=== PATIENT | male | born 1960 | race Caucasian/White ===

== ENCOUNTER 2018-03-31 08:50 | Emergency (ER) | payer OTHER ==
[2018-03-31 09:14] VITALS: BP 161/108
--- NOTE | 2018-03-31 09:14 | ED ---
Abdominal Pain/Male - HPI Summary HPI Summary: Pt is a 57 year old M presenting to the ED with a lump in his left lower abdomen. He says lump comes and goes but has been bad the last couple days. It is very painful has not gone away, and goes into the testicle. He says the pain has been so bad he wakes up throwing up. 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 - History of Current Complaint Chief Complaint: EDAbdPain Stated Complaint: ABD PAIN Time Seen by Provider: 03/31/18 08:57 Hx Obtained From: Patient Onset/Duration: Gradual Onset, Lasting Days, Still Present Timing: Constant, Lasting Days Severity Initially: Severe Severity Currently: Severe Pain Intensity: 10 Pain Scale Used: 0-10 Numeric Location: Suprapubic - left Radiates: No Radiates to: Inguinal Aggravating Factor(s): Movement, Deep Breaths, Other: - coughing, excess movement/stress Alleviating Factor(s): Nothing Associated Signs And Symptoms: Positive: Vomiting - Allergies/Home Medications Allergies/Adverse Reactions: Allergies Allergy/AdvReac Type Severity Reaction Status Date / Time bee venom protein (honey bee) Allergy Anaphylatic Verified 03/31/18 09:10 Shock procaine Allergy Anaphylatic Verified 03/31/18 09:10 Shock Home Medications: Home Medications NK [No Home Medications Reported] 03/31/18 [History Confirmed 03/31/18] PMH/Surg Hx/FS Hx/Imm Hx Previously Healthy: Yes Infectious Disease History: No Infectious Disease History: Denies: Traveled Outside the [place] in Last 30 Days - Family History Known Family History: Positive: Hypertension - Social History Alcohol Use: Daily Alcohol Amount: "couple" beers Substance Use Type: Reports: Marijuana Smoking Status (MU): Heavy Every Day Tobacco Smoker Review of Systems Negative: Fever Positive: Abdominal Pain, Vomiting All Other Systems Reviewed And Are Negative: Yes Physical Exam - Summary Physical Exam Summary: VITAL SIGNS: Reviewed. GENERAL: Patient is a well-developed and nourished male who is lying comfortable in the stretcher. Patient is not in any acute respiratory distress. HEAD AND FACE: No signs of trauma. No ecchymosis, hematomas or skull depressions. No sinus tenderness. EYES: PERRLA, EOMI x 2, No injected conjunctiva, no nystagmus. EARS: Hearing grossly intact. Ear canals and tympanic membranes are within normal limits. MOUTH: Oropharynx within normal limits. NECK: Supple, trachea is midline, no adenopathy, no JVD, no carotid bruit, no c- spine tenderness, neck with full ROM. CHEST: Symmetric, no tenderness at palpation LUNGS: Clear to auscultation bilaterally. No wheezing or crackles. CVS: Regular rate and rhythm, S1 and S2 present, no murmurs or gallops appreciated. ABDOMEN: L inguinal hernia protrusion, easily reduced. Bowel sounds are normal. EXTREMITIES: FROM in all major joints, no edema, no cyanosis or clubbing. NEURO: Alert and oriented x 3. No acute neurological deficits. Speech is normal and follows commands. SKIN: Dry and warm Triage Information Reviewed: Yes Vital Signs On Initial Exam: Initial Vitals Temp Pulse Resp BP Pulse Ox 98.1 F 84 14 163/97 96 03/31/18 08:53 12 08:53 12 08:53 12 08:53 12 08:53 Vital Signs Reviewed: Yes Diagnostics - Vital Signs Vital Signs Temp Pulse Resp BP Pulse Ox 03/31/18 08:53 98.1 F 84 14 163/97 96 - Laboratory Lab Statement: Any lab studies that have been ordered have been reviewed, and results considered in the medical decision making process. Abdominal Pain Fem Course/Dx - Course Assessment/Plan: This patient is a 57-year-old male who presents to the emergency department with a chief complaint of left inguinal pain. The patient reports and that he has is bulging mass in the left inguinal area for the last couple days. The pain has increased to approximately 5-6 out of 10. Past medical history: None. Past surgical history: Wrist surgery. Social history: Positive for smoking, positive alcohol intake, occasional marijuana. Family history: Hypertension with his brother. In the ED course the patient has a left inguinal hernia which it was easily reducible. After the reduction the pain has resolved. Now the patient is feeling better. Patient has no other complaints. The patient will be discharged home with follow-up with primary care physician and surgery. I discussed all the findings and test results with the patient. Patient was instructed to return to the emergency room immediately if any of the symptoms return or worsens. Plan of care was discussed with the patient and understands and agrees. All questions were answered at patient satisfaction. There were no further complaints or concerns. Lung exam before discharge: CTA B/L. Good air exchange. No wheezing or crackles heard. CVS: S1 and S2 present. No murmurs appreciated. Patient is alert and oriented x 3. Patient is hemodynamically stable. Patient will be discharged home with follow up PCP in the next 2-3 days - Diagnoses Provider Diagnoses: Inguinal hernia Discharge - Sign-Out/Discharge Documenting (check all that apply): Patient Departure - Discharge Plan Condition: Stable Disposition: HOME Patient Education Materials: Inguinal Hernia (ED) Forms: *Work Release Referrals: [facility] [Outside] [facility] [Medical Doctor] - - Billing Disposition and Condition Condition: STABLE Disposition: Home - Attestation Statements Document Initiated by Michaelibketty: Yes Documenting Scribe: Sarah Nguyen Provider For Whom Rustam is Documenting (Include Credential): Tae Burt MD. Scribe Attestation: Sarah Whatley scribed for Tae Burt MD. on 04/01/18 at 0734. Scribe Documentation Reviewed: Yes Provider Attestation: The documentation as recorded by the michaelibeSarah accurately reflects the service I personally performed and the decisions made by Tae donohue MD. Status of Scribe Document: Viewed
== END 2018-03-31 09:20 | disposition home or self-care (01) ==
LOC: ED 08:50
DX: K40.90 Unilateral inguinal hernia, without obstruction or gangrene, not specified as recurrent (principal); R10.32 Left lower quadrant pain; R11.0 Nausea; R05 Cough; F17.210 Nicotine dependence, cigarettes, uncomplicated
CPT/HCPCS: 99282

== ENCOUNTER → 2018-04-02 11:48 | Emergency (ER) | payer OTHER ==
[~2018-04-02 11:48] MED LIST: Acetaminophen TAB* 325 MG PO ONE
--- NOTE | 2018-04-02 16:56 | ED ---
GI/ HPI - HPI Summary HPI Summary: Patient is a 57 y/o M w/ c/o left inguinal hernia. He was present at ED two days ago for Sx. Hernia was reduced in ED, patient was discharged and instructed to follow up with surgery. He states that he was scheduled for appointment today in the afternoon. Upon waking up this morning, he states that he began to experience severe pain and bulging at the same area again. Pain is described as sharp. Patient called the surgeon's office, he was instructed to come to ED. He denies Hx of cardiac disease, respiratory disease. Patient states he is not on blood thinners. On triage, pain is rated 7/10, straining, bending over, and coughing is noted to aggravate Sx, nothing is noted to alleviate Sx. Home medications and allergies are reviewed. - History of Current Complaint Chief Complaint: EDGeneral Time Seen by Provider: 04/02/18 16:43 Stated Complaint: POSS HERNIA Hx Obtained From: Patient Onset/Duration: Started Hours Ago - Sx onset this morning, Still Present Timing: Constant, Lasting Hours Severity: Severe - 7/10 Current Severity: Severe - 7/10 Pain Intensity: 7 Location of Pain: Groin - left inguinal region Pain Characteristics: Sharp Associated Signs and Symptoms: Positive: Other: - left inguinal pain Aggravating Factor(s): Straining, Movement - bending over, Coughing, Movement - bending over Alleviating Factor(s): Nothing - Allergy/Home Medications Allergies/Adverse Reactions: Allergies Allergy/AdvReac Type Severity Reaction Status Date / Time bee venom protein (honey bee) Allergy Anaphylatic Verified 03/31/18 09:10 Shock procaine Allergy Anaphylatic Verified 03/31/18 09:10 Shock PMH/Surg Hx/FS Hx/Imm Hx Sensory History: Denies: Hx Legally Blind, Hx Deafness Opthamlomology History: Denies: Hx Legally Blind EENT History: Denies: Hx Deafness Infectious Disease History: No Infectious Disease History: Denies: Traveled Outside the [place] in Last 30 Days - Family History Known Family History: Positive: Hypertension - Social History Alcohol Use: Daily Alcohol Amount: "couple" beers Substance Use Type: Reports: Marijuana Smoking Status (MU): Heavy Every Day Tobacco Smoker Review of Systems Negative: Fever - on vitals, temp is 98.4 F Positive: Other - left inguinal pain All Other Systems Reviewed And Are Negative: Yes Physical Exam - Summary Physical Exam Summary: Appearance: Well-appearing, Well-nourished, lying in bed comfortably Skin: Warm, dry, no obvious rash Eyes: sclera anicteric, no conjunctival pallor ENT: mucous membranes moist, pharynx appears normal Neck: Supple, nontender Respiratory: Clear to auscultation, no signs of respiratory distress Cardiovascular: Normal S1, S2. No murmurs. Normal distal pulses in tibial and radial bilaterally. Abdomen: Soft, nontender, normal active bowel sounds present Musculoskeletal: Strength/ROM Intact; left inguinal hernia the size of a golfball that is tender and firm. Neurological: A&Ox3, awake and alert, mentation is normal, speech is fluent and appropriate Psychiatric: affect is normal, does not appear anxious or depressed Triage Information Reviewed: Yes Vital Signs On Initial Exam: Initial Vitals Temp Pulse Resp BP Pulse Ox 98.4 F 98 16 141/95 100 04/02/18 11:52 04/02/18 11:52 04/02/18 11:52 04/02/18 11:52 04/02/18 11:52 Vital Signs Reviewed: Yes Diagnostics - Vital Signs Vital Signs Temp Pulse Resp BP Pulse Ox 04/02/18 14:15 98.2 F 80 16 158/88 99 04/02/18 11:52 98.4 F 98 16 141/95 100 - Laboratory Lab Statement: Any lab studies that have been ordered have been reviewed, and results considered in the medical decision making process. Re-Evaluation - Re-Evaluation First Eval Re-Evaluation Time: 16:55 Comment: Discussed consult with Dr. Madera, patient is agreeable with discharge and follow up with Dr. Lara. GIGU Course/Dx - Course Course Of Treatment: Patient is a 57 y/o M w/ c/o left inguinal hernia. He was present at ED two days ago for Sx. Hernia was reduced in ED, patient was discharged and instructed to follow up with surgery. He states that he was scheduled for appointment today in the afternoon. Upon waking up this morning, he states that he began to experience severe pain and bulging at the same area again. Pain is described as sharp. Patient called the surgeon's office, he was instructed to come to ED. He denies Hx of cardiac disease, respiratory disease. Patient states he is not on blood thinners. On physical exam, left inguinal hernia the size of a golfball that is tender and firm is noted. This was reduced with a few minutes of gentle pressure. During ED course, patient was given Tylenol [address] Madera was consulted, who called Dr. Lara's office for possible appointment of patient. 1656 - Dr. Madera called back and gave earliest time and date patient can be seen by Dr. Lara. Patient is agreeable with discharge and follow up with Dr. Lara. - Diagnoses Provider Diagnoses: Left inguinal hernia - Physician Notifications Discussed Care Of Patient With: Stephane Madera Time Discussed With Above Provider: 16:50 Instructed by Provider To: Other - 1649 - Dr. Madera was consulted, states he will call Dr. Lara's office for possible appointment of patient. 1656 - Dr. Madera called back and gave earliest time and date patient can be seen by Dr. Lara. Discharge - Sign-Out/Discharge Documenting (check all that apply): Patient Departure - discharge - Discharge Plan Condition: Improved Disposition: HOME Patient Education Materials: Inguinal Hernia (ED) Referrals: Jacob Lara MD [Medical Doctor] - Additional Instructions: You have an appt with Dr. Lara, the general surgeon, at 930 am. If you wake up and the hernia is out again, try the gentle pressure, lying flat and ice as we discussed. Even if you cannot get it back in keep the appt with Dr. Lara. If he is unable to reduce it he will get you in for an emergency surgery. Otherwise his office will try to schedule you for . - Billing Disposition and Condition Condition: IMPROVED Disposition: Home - Attestation Statements Document Initiated by Rustam: Yes Documenting Scribe: RAMSES MEEK Provider For Whom Rustam is Documenting (Include Credential): RASHAWN AL MD Scribe Attestation: RAMSES Whatley scribed for RASHAWN AL MD on 04/03/18 at 1015. Scribe Documentation Reviewed: Yes Provider Attestation: The documentation as recorded by the RAMSES lu accurately reflects the service I personally performed and the decisions made by me, RASHAWN AL MD Status of Scribe Document: Viewed
[2018-04-02 17:56] VITALS: BP 152/94
== END | disposition home or self-care (01) ==
LOC: ED 11:48
DX: K40.90 Unilateral inguinal hernia, without obstruction or gangrene, not specified as recurrent (principal); F17.210 Nicotine dependence, cigarettes, uncomplicated
CPT/HCPCS: 99282; A9270-GY

== ENCOUNTER 2018-04-04 08:17 | Day surgery (SDC) | payer OTHER ==
[~2018-04-04 08:17] MED LIST changes: +Buffered Lidocaine 0.9% SYRIN* 5 ML/SYR SYRINGE INTRADERM ONE; +Gabapentin CAP(*) 300 MG PO ONE
[2018-04-04] MEDS ORDERED: Gabapentin CAP(*) 300 MG ONE (08:37)
[2018-04-04] MEDS ORDERED: ceFAZolin 2 GM PREMIX in ORs 2 GM/50 ML BAG IVPB ONE (08:38)
[2018-04-04] MEDS ORDERED: Ketorolac INJ* 30 MG/ML 1 ML VIAL ONE (08:38)
[2018-04-04] MEDS ORDERED: Acetaminophen TAB* 325 MG ONE (08:38)
[2018-04-04] MEDS ORDERED: Midazolam* 1 MG/ML 2 ML VIAL (2 MG) ONE (09:45)
[2018-04-04] MEDS ORDERED: fentaNYL* 50 MCG/ML 2 ML VIAL (100 MCG VIAL) ONE ×3 (09:45→12:07)
[2018-04-04] MEDS ORDERED: Famotidine IV* 10 MG/ML 2 ML (20 mg) ONE (10:37)
[2018-04-04] MEDS ORDERED: Propofol* 10 MG/ML 20 ML BTL ONE (10:37)
[2018-04-04] MEDS ORDERED: Dexamethasone IV* 4 MG/ML 1 ML (4 MG) ONE (10:37)
[2018-04-04] MEDS ORDERED: HYDROmorphone INJ1* 1 MG/ML SYRINGE ONE (10:47)
[2018-04-04] MEDS ORDERED: Naloxone* 0.4 MG/ML 1 ML VIAL IV PRN (11:01)
[2018-04-04] MEDS ORDERED: DiMENhydriNATE IV* 50 MG/ML VIAL IV PUSH PRN (11:01)
[2018-04-04] MEDS ORDERED: diPHENhydraMINE IV* 50 MG/ML 1 ml VIAL (BENADRYL) IV PRN (11:01)
[2018-04-04] MEDS ORDERED: Ondansetron INJ* 2 MG/ML VIAL IV PRN (11:01)
[2018-04-04] MEDS ORDERED: PROCHLORPERAZINE INJ 5 MG/ML 2 ML VIAL IV PRN (11:01)
[2018-04-04] MEDS ORDERED: HYDROcodone/ACETAMIN 5-325 MG* 1 TAB PO PRN ×2 (11:01)
[2018-04-04] MEDS ORDERED: Levalbuterol 0.63MG/3ML NEB* UNIT OF USE INH PRN (11:01)
--- NOTE | 2018-04-04 11:24 | OP ---
Operative Report - Blank - Operative Report Date of Operation: 04/04/18 Note: Brief Operative Note Preop Dx: Left Inguinal Hernia Postop Dx: same; indirect Procedure: open repair LIH w/ mesh Anesthesia: GET Surgeon: Marco Tax Accountant: RON Galdamez Fluids: 800 ml EBL: none Specimen: none Drains: none Findings: dictated
[2018-04-04] MEDS ORDERED: HYDROcodone/ACETAMIN 5-325 MG* 1 TAB ONE (11:41)
[2018-04-04] MEDS: fentaNYL* 50 MCG/ML 2 ML VIAL (100 MCG VIAL) IV PRN ×4 (11:43→12:27)
[2018-04-04 13:14] VITALS: BP 125/87
--- NOTE | 2018-04-04 23:47 | OP ---
CC: Dr. Urias * DATE OF OPERATION: 04/04/18 - SDS DATE OF : 64 SURGEON: Jacob Lara MD CFD ENGINEER: RON Ortega ANESTHESIOLOGIST: Dr. Chen. ANESTHESIA: General anesthetic. PRE-OP DIAGNOSIS: Left inguinal hernia. POST-OP DIAGNOSIS: Left inguinal hernia. OPERATIVE PROCEDURE: Open repair left inguinal hernia with mesh. DESCRIPTION OF PROCEDURE: The patient was supine on the operative table. After adequate general anesthetic, compression stockings, Adeline Hugger warmer, and intravenous antibiotics, the left groin was clipped and prepped with antiseptic and draped in a sterile fashion and approximately a 6 cm incision was created in the left inguinal area, carried down to the extremal oblique, which was opened in the direction of its fibers. Indirect space hernia was readily identified as the cord structures were tented upward with a Lydia drain. The sac and the surrounding structures were somewhat edematous consistent with the history of recent incarceration that was reduced. The sac was dissected free from the cord structures without difficulty. It was reduced and a cone mesh plug was placed into the internal ring, sutured there with 2-0 Vicryl. A second piece of mesh was placed to the inguinal floor, sutured at the tubercle, tails were split, brought around the cord structures and tacked down laterally. External oblique was closed over top with 2-0 Vicryl, Bar's with 3-0 Vicryl, skin with 4-0 Prolene followed by sterile dressing. He tolerated the procedure well, was awakened and brought to Recovery in good condition. There were no complications. No drains. No pathologic specimens. Sponge, instrument counts correct. Estimated blood loss less than 10 mL. [id number]/[facility] #: [id number] [facility]
== END 2018-04-04 13:39 | disposition home or self-care (01) ==
LOC: OR 08:17
PROVIDERS: ATTEND Surgery
DX: K40.90 Unilateral inguinal hernia, without obstruction or gangrene, not specified as recurrent (principal); F17.210 Nicotine dependence, cigarettes, uncomplicated; R03.0 Elevated blood-pressure reading, without diagnosis of hypertension
CPT/HCPCS: A9270-GY; C1781; J0690; J1100; J1170; J1885; J2250; J2704; J3010

== ENCOUNTER 2018-10-13 03:29 | Emergency (ER) | payer OTHER ==
[2018-10-13] MEDS ORDERED: Ketorolac INJ* 30 MG/ML 1 ML VIAL IM ONE (03:44)
[2018-10-13] MEDS ORDERED: oxyCODONE/Acetamin 5/325 MG* TAB PO ONE (03:45)
--- NOTE | 2018-10-13 03:46 | ED ---
Adult Trauma - HPI Summary HPI Summary: This patient is a 58 year old M presenting to [facility] with a chief complaint of right rib pain wither difficulty breathing after [place] railroad tracks [place] 1:45 this morning while night fishing. Pain rated 10/10 in severity. Denies any other injury. - History of Current Complaint Chief Complaint: EDShortnessOfBreath Stated Complaint: RIB INJURY PER PT Time Seen by Provider: 10/13/18 03:35 Hx Obtained From: Patient Mechanism of Injury: Fall Ambulatory at the Scene: Yes Loss of Consciousness: no loss of consciousness Onset/Duration: Started Hours Ago Onset of Pain: Immediate Pain Intensity: 10 Pain Scale Used: 0-10 Numeric Location: Chest Aggravating Factor(s): Deep Breaths - Allergy/Home Medications Allergies/Adverse Reactions: Allergies Allergy/AdvReac Type Severity Reaction Status Date / Time bee venom protein (honey bee) Allergy Anaphylatic Verified 10/13/18 03:43 Shock gluten Allergy GI Upset Verified 10/13/18 03:43 lidocaine Allergy Anaphylatic Verified 10/13/18 03:43 Shock procaine Allergy Anaphylatic Verified 10/13/18 03:43 Shock "GUS" Allergy Anaphylatic Uncoded 10/13/18 03:43 Shock PMH/Surg Hx/FS Hx/Imm Hx GI History: Denies: Other GI Disorders Musculoskeletal History: Reports: Hx Tendonitis - right wrist Sensory History: Reports: Hx Contacts or Glasses - glasses Denies: Hx Legally Blind, Hx Deafness, Hx Hearing Aid Opthamlomology History: Reports: Hx Contacts or Glasses - glasses Denies: Hx Legally Blind - Surgical History Surgery Procedure, Year, and Place[place] [facility] [place] Hx Anesthesia Reactions: Yes - woke up during surgery Infectious Disease History: No Infectious Disease History: Denies: Traveled Outside the [place] in Last 30 Days - Family History Known Family History: Positive: Hypertension - Social History Alcohol Use: Daily Alcohol Amount: "couple" beers Substance Use Type: Reports: Marijuana Substance Use Comment - Amount & Last Used: on occasion Smoking Status (MU): Heavy Every Day Tobacco Smoker Amount Used/How Often: pack a day for 30 plus years Review of Systems Positive: Shortness Of Breath - secondary to pain Positive: Myalgia - right rib pain All Other Systems Reviewed And Are Negative: Yes Physical Exam - Summary Physical Exam Summary: VITAL SIGNS: Reviewed. GENERAL: Patient is a well-developed and nourished male who is lying comfortable in the stretcher. Patient is not in any acute respiratory distress. HEAD AND FACE: No signs of trauma. No ecchymosis, hematomas or skull depressions. No sinus tenderness. EYES: PERRLA, EOMI x 2, No injected conjunctiva, no nystagmus. EARS: Hearing grossly intact. Ear canals and tympanic membranes are within normal limits. MOUTH: Oropharynx within normal limits. NECK: Supple, trachea is midline, no adenopathy, no JVD, no carotid bruit, no c- spine tenderness, neck with full ROM CHEST: Symmetric, Tenderness over right lower chest wall LUNGS: Clear to auscultation bilaterally. No wheezing or crackles. Decreased breath sounds bilaterally due to pain CVS: Regular rate and rhythm, S1 and S2 present, no murmurs or gallops appreciated. ABDOMEN: Soft, non-tender. No signs of distention. No rebound no guarding, and no masses palpated. Bowel sounds are normal. EXTREMITIES: FROM in all major joints, no edema, no cyanosis or clubbing. NEURO: Alert and oriented x 3. No acute neurological deficits. Speech is normal and follows commands. SKIN: Dry and warm Triage Information Reviewed: Yes Vital Signs On Initial Exam: Initial Vitals Temp Pulse Resp BP Pulse Ox 97.3 F 103 20 141/104 97 10/13/18 03:31 10/13/18 03:31 10/13/18 03:31 10/13/18 03:31 10/13/18 03:31 Vital Signs Reviewed: Yes Diagnostics - Vital Signs Vital Signs Temp Pulse Resp BP Pulse Ox 10/13/18 03:31 97.3 F 103 20 141/104 97 - Laboratory Lab Statement: Any lab studies that have been ordered have been reviewed, and results considered in the medical decision making process. - Radiology CXR Radiology Interpretation Completed By: ED Physician Summary of Radiographic Findings: No acute process. Pending offical report. Right Rib XR Radiology Interpretation Completed By: ED Physician Summary of Radiographic Findings: Minimally displaced 7th right rib fracture laterally. Pending offical report. Adult Trauma Course/Dx - Course Course Of Treatment: 58 year old M presenting to [facility] with a chief complaint of right rib pain wither difficulty breathing after falling onto railroad tracks at 1:45 this morning. CXR reveals no acute process. Right rib XR reveals a minimally displaced 7th right rib fracture laterally. Patient is given percocet for pain. Patient will be discharged home and is provided a work note for three days. - Diagnoses Provider Diagnoses: Right rib fracture Discharge - Sign-Out/Discharge Documenting (check all that apply): Patient Departure - discharge Patient Received Moderate/Deep Sedation with Procedure: No - Discharge Plan Condition: Stable Disposition: HOME Patient Education Materials: Rib Fracture (ED) Forms: *Work Release Referrals: Ari Urias MD [Primary Care Provider] - 2 Days Additional Instructions: RETURN TO THE EMERGENCY DEPARTMENT FOR CHANGING OR WORSENING SYMPTOMS. - Attestation Statements Document Initiated by Scribe: Yes Documenting Scribe: Vandana Green Provider For Whom Scribe is Documenting (Include Credential): Iram Montgomery MD Scribe Attestation: Vandana Whatley, scribed for Iram Montgomery MD on 10/13/18 at 0436. Status of Scribe Document: Ready
[2018-10-13 04:47] VITALS: BP 122/90
== END 2018-10-13 04:47 | disposition home or self-care (01) ==
LOC: ED 03:29
DX: S22.31XA Fracture of one rib, right side, initial encounter for closed fracture (principal); W18.30XA Fall on same level, unspecified, initial encounter; Y92.85 Railroad track as the place of occurrence of the external cause; Z88.4 Allergy status to anesthetic agent; Z91.030 Bee allergy status; F17.200 Nicotine dependence, unspecified, uncomplicated
CPT/HCPCS: 71045; 96372; 99283; A9270-GY; J1885

== ENCOUNTER 2021-11-15 12:27 | Inpatient (IN) ==
[2021-11-15 12:59] LABS: Hematocrit 37 % (42-52); Hemoglobin 13.2 g/dL (14.0-18.0); Mean Corpuscular HGB Conc 36 g/dL (31-36); Mean Corpuscular Hemoglobin 39 pg (27-31); Mean Corpuscular Volume 111 fL (80-94); Mean Platelet Volume 8.3 fL (7.4-10.4); Platelet Count 244 10^3/uL (150-450); Red Blood Count 3.36 10^6 /uL (4.18-5.48); Red Cell Distribution Width 18 % (10-15); White Blood Count 6.1 10^3/uL (3.5-10.8)
[2021-11-15 13:07] LABS: INR 1.15 (0.89-1.11)
[2021-11-15] MEDS ORDERED: Albuterol HFA INHALER 8 gm MDI INH ONE (13:10)
[2021-11-15 13:26] LABS: Anisocytosis 2+; Macrocytosis 2+
[2021-11-15 13:46] LABS: ABS Lymphocytes 1.2 10^3/ul (1.0-4.8); ABS Monocytes 0.6 10^3/ul (0-0.8); ABS Neutrophils 4.3 10^3/ul (1.5-7.7); Eosinophil % 0.2 %; Lymphocyte % 19.7 %; Nucleated Red Blood Cells % 0.1
[2021-11-15 13:48] LABS: Albumin 3.2 g/dL (3.2-5.2); Calcium 8.4 mg/dL (8.6-10.3); Total Bilirubin 2.4 mg/dL (0.2-1.0)
[2021-11-15 13:55] LABS: Albumin/Globulin Ratio 0.9 (1-3); Globulin 3.4 g/dL (2-4); Total Protein 6.6 g/dL (6.4-8.9); eGFR CKD-EPI 101.9 (>60)
[2021-11-15 14:06] LABS: Indirect Bilirubin 1.4 mg/dL (0.3-1.0)
[2021-11-15] MEDS ORDERED: Iohexol 350 (CONTRAST) 500 ML MDV IV ONE (14:09)
[2021-11-15] MEDS ORDERED: Potassium Chlor 20 meq TAB.ER PO ONE ×2 (14:16→23:17)
[2021-11-15 14:21] LABS: High Sensitivity Troponin 1 Hr 15 pg/mL (<20)
[2021-11-15] MEDS ORDERED: Enoxaparin 40 MG/0.4 ML SYR SUBCUT ONE (14:36)
[2021-11-15] MEDS ORDERED: Enoxaparin 60 MG/0.6 ML SYR SUBCUT ONE (14:43)
[2021-11-15] MEDS: KCL 20 MEQ/100 ML IVPREMIX 20 MEQ/100 ML BAG IV SCH ×4 (15:10→23:18)
[2021-11-15 15:14] LABS: Magnesium 1.4 mg/dL (1.9-2.7)
[2021-11-15 15:19] LABS: Phosphorus 2.5 mg/dL (2.5-5.0)
[2021-11-15] MEDS ORDERED: Magnesium Sulfate IV 3 GM in NS 0.9% 100 ml BAG 100 ML IVPB ONE (15:35)
[2021-11-15 15:38] LABS: C Reactive Protein 24.81 mg/L (<8.01)
[2021-11-15] MEDS ORDERED: Ondansetron 4 mg VIAL 2 MG/ML 2 ml VIAL IV PRN (15:49)
[2021-11-15] MEDS ORDERED: Magnesium Sulfate 2 GM IV (Premix) IVPB ONE (16:00)
[2021-11-15] MEDS ORDERED: Magnesium Sulfate 1 GM IV 1 GM/100 ML BAG IV ONE (17:00)
[2021-11-15 18:22] LABS: Erythrocyte Sed Rate 26 mm/Hr (0-19)
[2021-11-15 18:54] LABS: Blood Urea Nitrogen 8 mg/dL (6-24); CO2 Carbon Dioxide 31 mmol/L (22-32); Calcium 8.3 mg/dL (8.6-10.3); Chloride 84 mmol/L (101-111); Glucose 88 mg/dL (70-100); Magnesium 1.5 mg/dL (1.9-2.7); Sodium 130 mmol/L (135-145); eGFR CKD-EPI 105.2 (>60)
[2021-11-15 19:05] LABS: TSH Ultra Thyroid Stim Horm 0.59 mcIU/mL (0.34-5.60)
[2021-11-15 19:14] LABS: Osmolality Serum 267 mOsm/kg (275-295)
[2021-11-15 19:17] LABS: Folate 2.64 ng/mL (5.90-24.80); Vitamin B12 1079 pg/mL (180-914)
[2021-11-15 19:21] LABS: Anion Gap 15 mmol/L (2-11)
[2021-11-15] MEDS: Acetaminophen IV 1 GM/100ML 100 ML IV PRN (19:46)
[2021-11-15 19:53] LABS: Hepatitis B Surface Antigen Nonreactive (Nonreactive)
[2021-11-15 19:58] LABS: Hepatitis A Ab IgM Negative (Negative); Hepatitis B Core IgM Nonreactive (Nonreactive)
[2021-11-15 20:10] LABS: Hepatitis C Antibody Negative (Negative)
[2021-11-15] MEDS ORDERED: Magnesium Sulfate 2 gm BAG 2 GM/50 ML BAG IVPB ONE (23:20)
[2021-11-16] MEDS: Enoxaparin 60 MG/0.6 ML SYR SUBCUT SCH ×3 (02:32→22:46)
[2021-11-16 02:50] LABS: Urine Creatinine Concentration 75.34 mg/dL; Urine Sodium Concentration < 18 mmol/L
[2021-11-16 03:11] LABS: Urine Appearance Clear; Urine Color Yellow; Urine pH 6.5 (5.0-9.0)
[2021-11-16 03:12] LABS: Urine Bilirubin Negative (Negative); Urine Blood Negative (Negative); Urine Glucose Negative (Negative); Urine Ketones Negative (Negative); Urine Nitrite Negative (Negative); Urine Protein Negative (Negative)
[2021-11-16] MEDS: Acetaminophen IV 1 GM/100ML 100 ML IV PRN ×3 (07:13→23:51)
[2021-11-16 07:52] LABS: Albumin 2.6 g/dL (3.2-5.2); C Reactive Protein 23.7 mg/L (<8.01); Calcium 7.9 mg/dL (8.6-10.3); Globulin 2.7 g/dL (2-4); Magnesium 2.5 mg/dL (1.9-2.7); Phosphorus 2.4 mg/dL (2.5-5.0); Total Bilirubin 1.4 mg/dL (0.2-1.0); Total Protein 5.3 g/dL (6.4-8.9); eGFR CKD-EPI 107.6 (>60)
[2021-11-16 08:06] LABS: Potassium 2.7 mmol/L (3.5-5.0)
[2021-11-16] MEDS: KCL 20 MEQ/100 ML IVPREMIX 20 MEQ/100 ML BAG IV SCH ×4 (08:56→22:47)
[2021-11-16 18:46] LABS: Calcium 7.9 mg/dL (8.6-10.3); Potassium 2.8 mmol/L (3.5-5.0); eGFR CKD-EPI 113.5 (>60)
[2021-11-16 21:03] LABS: Magnesium 1.9 mg/dL (1.9-2.7)
[2021-11-17] MEDS: KCL 20 MEQ/100 ML IVPREMIX 20 MEQ/100 ML BAG IV SCH ×2 (01:35→03:38)
[2021-11-17 05:33] LABS: Hematocrit 36 % (42-52); Hemoglobin 12.2 g/dL (14.0-18.0); Mean Corpuscular HGB Conc 34 g/dL (31-36); Mean Corpuscular Hemoglobin 39 pg (27-31); Mean Corpuscular Volume 114 fL (80-94); Mean Platelet Volume 8.7 fL (7.4-10.4); Platelet Count 216 10^3/uL (150-450); Red Blood Count 3.13 10^6 /uL (4.18-5.48); Red Cell Distribution Width 18 % (10-15); White Blood Count 5.3 10^3/uL (3.5-10.8)
[2021-11-17 05:55] LABS: Calcium 7.8 mg/dL (8.6-10.3); Magnesium 1.7 mg/dL (1.9-2.7); Potassium 3.3 mmol/L (3.5-5.0); eGFR CKD-EPI 114.8 (>60)
[2021-11-17] MEDS: Enoxaparin 60 MG/0.6 ML SYR SUBCUT SCH ×2 (08:53→21:31)
[2021-11-17] MEDS: Acetaminophen IV 1 GM/100ML 100 ML IV PRN ×2 (09:00→21:31)
[2021-11-17 14:23] LABS: TB1 Ag minus Nil Result 0.05 IU/mL; TB2 Ag minus Nil Result 0.03 IU/mL
[2021-11-17 14:24] LABS: QuantiferonTb Gold Plus Result Negative (Negative)
[2021-11-17] MEDS ORDERED: fentaNYL 100 mcg/2 ml 50 MCG/ML VIAL ONE (16:35)
[2021-11-17] MEDS ORDERED: Midazolam 10 mg/10 ml VIAL 1 mg/ml 10 ml VIAL (10 mg) ONE (16:35)
[2021-11-18 06:12] LABS: Calcium 8.2 mg/dL (8.6-10.3); Magnesium 1.4 mg/dL (1.9-2.7); Potassium 3.1 mmol/L (3.5-5.0); eGFR CKD-EPI 114.8 (>60)
[2021-11-18] MEDS ORDERED: Potassium Chlor 20 meq TAB.ER PO ONE (07:17)
[2021-11-18] MEDS ORDERED: Magnesium Sulf 4 GM/100 ML IV 4,000 MG/100 ML BAG IVPB ONE (07:18)
[2021-11-18] MEDS: Acetaminophen IV 1 GM/100ML 100 ML IV PRN (07:46)
[2021-11-18 16:18] VITALS: BP 110/74
== END 2021-11-18 18:30 | disposition home or self-care (01) | DRG 134 ==
LOC: ED 12:27 → SUATTDRO 15:36 → EDHOLD 15:36 → MEDTELE 18:15
PROVIDERS: ADMIT Student in an Organized Health Care Education/Training Program; ATTEND Student in an Organized Health Care Education/Training Program

== ENCOUNTER 2021-12-06 10:12 | Inpatient (IN) ==
[2021-12-06 11:21] LABS: ABS Basophils 0.1 10^3/ul (0-0.2); ABS Lymphocytes 1.4 10^3/ul (1.0-4.8); ABS Monocytes 0.8 10^3/ul (0-0.8); ABS Neutrophils 7.5 10^3/ul (1.5-7.7); Eosinophil % 0.4 %; Hematocrit 33 % (42-52); Hemoglobin 11.7 g/dL (14.0-18.0); Lymphocyte % 14.4 %; Mean Corpuscular HGB Conc 36 g/dL (31-36); Mean Corpuscular Hemoglobin 39 pg (27-31); Mean Corpuscular Volume 110 fL (80-94); Mean Platelet Volume 6.9 fL (7.4-10.4); Nucleated Red Blood Cells % 0.1; Platelet Count 505 10^3/uL (150-450); Red Cell Distribution Width 19 % (10-15); White Blood Count 9.8 10^3/uL (3.5-10.8)
[2021-12-06 11:22] LABS: INR 1.01 (0.89-1.11)
[2021-12-06 11:36] LABS: High Sens Troponin Baseline 6 pg/mL (<20)
[2021-12-06 11:58] LABS: ALT 23 U/L (7-52); AST 44 U/L (13-39); Albumin 3.1 g/dL (3.2-5.2); Albumin/Globulin Ratio 0.9 (1-3); Alkaline Phosphatase 64 U/L (35-149); Anion Gap 13 mmol/L (2-11); Blood Urea Nitrogen 10 mg/dL (6-24); CO2 Carbon Dioxide 24 mmol/L (22-32); Calcium 8.8 mg/dL (8.6-10.3); Chloride 95 mmol/L (101-111); Globulin 3.3 g/dL (2-4); Glucose 101 mg/dL (70-100); Potassium 3.7 mmol/L (3.5-5.0); Sodium 132 mmol/L (135-145); Total Protein 6.4 g/dL (6.4-8.9); eGFR CKD-EPI 106.6 (>60)
[2021-12-06 12:41] LABS: High Sensitivity Troponin 1 Hr 7 pg/mL (<20)
[2021-12-06] MEDS ORDERED: Iohexol 350 (CONTRAST) 500 ML MDV IV ONE (14:14)
[2021-12-06] MEDS ORDERED: Thiamine 100 MG/ML 2 ml VIAL 100 MG, Folic Acid IV 1 MG, Multiple Vitamin IV ADULT 10 M... IV SCH (15:00)
[2021-12-06 15:50] LABS: C Reactive Protein 13.61 mg/L (<8.01)
[2021-12-06 15:58] LABS: Erythrocyte Sed Rate 56 mm/Hr (0-19)
[2021-12-06] MEDS ORDERED: Thiamine 100 MG/ML 2 ml VIAL 100 MG, Folic Acid IV 1 MG, Multiple Vitamin IV ADULT 10 M... IV ONE (16:30)
[2021-12-06] MEDS: Enoxaparin 60 MG/0.6 ML SYR SUBCUT SCH (17:53)
[2021-12-06 18:18] LABS: Alcohol, S < 13 mg/dL (<13)
[2021-12-06 18:37] LABS: Urine Benzodiazepine Screen None Detected (None Detect); Urine Cannabinoids Screen Presumptive Positive (None Detect); Urine Opiates Screen None Detected (None Detect)
[2021-12-06] MEDS ORDERED: Gadoteridol (CONTRAST) 279.3 MG/ML 10 ML IV ONE (19:41)
[2021-12-06] MEDS ORDERED: Thiamine 100 MG/ML 2 ml VIAL 500 MG in NS 0.9% 250 ml 250 ML IV ONE (19:43)
[2021-12-06] MEDS ORDERED: Thiamine 100 MG/ML 2 ml VIAL 500 MG in NS 0.9% 250 ml 250 ML IV SCH (20:00)
[2021-12-06] MEDS: Nicotine PATCH 14 MG/24 HR PATCH TRANSDERM SCH (20:25)
[2021-12-06] MEDS: Thiamine 100 MG/ML 2 ml VIAL 500 MG in NS 0.9% 250 ml 250 ML IV SCH (23:08)
[2021-12-07 01:56] LABS: HIV 4th Generation Nonreactive (Nonreactive)
[2021-12-07] MEDS: Enoxaparin 60 MG/0.6 ML SYR SUBCUT SCH ×2 (04:54→17:47)
[2021-12-07] MEDS: Thiamine 100 MG/ML 2 ml VIAL 500 MG in NS 0.9% 250 ml 250 ML IV SCH ×3 (04:54→21:24)
[2021-12-07 06:20] LABS: ABS Eosinophils 0.1 10^3/ul (0-0.6); ABS Lymphocytes 1.6 10^3/ul (1.0-4.8); ABS Monocytes 0.7 10^3/ul (0-0.8); ABS Neutrophils 6.8 10^3/ul (1.5-7.7); Eosinophil % 0.8 %; Hematocrit 27 % (42-52); Hemoglobin 9.2 g/dL (14.0-18.0); Lymphocyte % 17.3 %; Mean Corpuscular HGB Conc 34 g/dL (31-36); Mean Corpuscular Hemoglobin 37 pg (27-31); Mean Corpuscular Volume 109 fL (80-94); Mean Platelet Volume 7.1 fL (7.4-10.4); Platelet Count 381 10^3/uL (150-450); Red Blood Count 2.47 10^6 /uL (4.18-5.48); Red Cell Distribution Width 18 % (10-15); White Blood Count 9.3 10^3/uL (3.5-10.8)
[2021-12-07 06:45] LABS: Albumin 2.4 g/dL (3.2-5.2); Albumin/Globulin Ratio 0.9 (1-3); Calcium 8.1 mg/dL (8.6-10.3); Globulin 2.7 g/dL (2-4); Magnesium 1.4 mg/dL (1.9-2.7); Phosphorus 2.8 mg/dL (2.5-5.0); Potassium 3.2 mmol/L (3.5-5.0); Total Bilirubin 0.9 mg/dL (0.2-1.0); Total Protein 5.1 g/dL (6.4-8.9); eGFR CKD-EPI 104.4 (>60)
[2021-12-07] MEDS ORDERED: Potassium Chlor 20 meq TAB.ER PO ONE (07:03)
[2021-12-07] MEDS ORDERED: Magnesium Sulfate IV 3 GM in NS 0.9% 100 ml BAG 100 ML IVPB ONE (08:00)
[2021-12-07] MEDS: Nicotine PATCH 21 MG/24 HR PATCH TRANSDERM SCH (10:57)
[2021-12-07] MEDS: Nicotine PATCH 14 MG/24 HR PATCH TRANSDERM SCH (10:58)
[2021-12-08] MEDS: Enoxaparin 60 MG/0.6 ML SYR SUBCUT SCH ×2 (05:50→17:22)
[2021-12-08] MEDS: Thiamine 100 MG/ML 2 ml VIAL 500 MG in NS 0.9% 250 ml 250 ML IV SCH ×2 (06:48→14:37)
[2021-12-08 07:18] LABS: Magnesium 1.7 mg/dL (1.9-2.7); Potassium 3.6 mmol/L (3.5-5.0)
[2021-12-08 07:31] LABS: ABS Eosinophils 0.1 10^3/ul (0-0.6); ABS Lymphocytes 1.4 10^3/ul (1.0-4.8); ABS Monocytes 0.7 10^3/ul (0-0.8); ABS Neutrophils 5.6 10^3/ul (1.5-7.7); Eosinophil % 0.7 %; Hematocrit 25 % (42-52); Hemoglobin 8.9 g/dL (14.0-18.0); Lymphocyte % 18.4 %; Mean Corpuscular HGB Conc 36 g/dL (31-36); Mean Corpuscular Hemoglobin 39 pg (27-31); Mean Corpuscular Volume 110 fL (80-94); Mean Platelet Volume 7.6 fL (7.4-10.4); Platelet Count 380 10^3/uL (150-450); Red Blood Count 2.26 10^6 /uL (4.18-5.48); Red Cell Distribution Width 18 % (10-15); White Blood Count 7.8 10^3/uL (3.5-10.8)
[2021-12-08] MEDS ORDERED: Nicotine PATCH 21 MG/24 HR PATCH TRANSDERM SCH (08:00)
[2021-12-08] MEDS: Nicotine PATCH 21 MG/24 HR PATCH TRANSDERM SCH (09:49)
[2021-12-09 05:37] LABS: Calcium 8.1 mg/dL (8.6-10.3); Magnesium 1.5 mg/dL (1.9-2.7); Potassium 4.1 mmol/L (3.5-5.0); eGFR CKD-EPI 106.1 (>60)
[2021-12-09] MEDS ORDERED: Magnesium Sulf 4 GM/100 ML IV 4,000 MG/100 ML BAG IVPB ONE (07:45)
[2021-12-09] MEDS: Nicotine PATCH 21 MG/24 HR PATCH TRANSDERM SCH (08:32)
[2021-12-09] MEDS: Thiamine 100 MG/ML 2 ml VIAL 250 MG in NS 0.9% 100 ml BAG 100 ML IV SCH (13:24)
[2021-12-09] MEDS: Nicotine GUM 2MG FRUIT FLAVOR PO PRN ×2 (15:59→20:42)
[2021-12-10 07:21] LABS: Magnesium 1.9 mg/dL (1.9-2.7); Potassium 4.5 mmol/L (3.5-5.0); eGFR CKD-EPI 114.8 (>60)
[2021-12-10] MEDS: Nicotine PATCH 21 MG/24 HR PATCH TRANSDERM SCH (07:41)
[2021-12-10 09:49] LABS: ABS Basophils 0.1 10^3/ul (0-0.2); ABS Eosinophils 0.1 10^3/ul (0-0.6); ABS Lymphocytes 1.2 10^3/ul (1.0-4.8); ABS Monocytes 0.6 10^3/ul (0-0.8); ABS Neutrophils 7.9 10^3/ul (1.5-7.7); Eosinophil % 0.7 %; Hematocrit 27 % (42-52); Hemoglobin 9.6 g/dL (14.0-18.0); Lymphocyte % 12.3 %; Mean Corpuscular HGB Conc 36 g/dL (31-36); Mean Corpuscular Hemoglobin 39 pg (27-31); Mean Corpuscular Volume 110 fL (80-94); Mean Platelet Volume 6.9 fL (7.4-10.4); Platelet Count 413 10^3/uL (150-450); Red Blood Count 2.45 10^6 /uL (4.18-5.48); Red Cell Distribution Width 18 % (10-15); White Blood Count 9.8 10^3/uL (3.5-10.8)
[2021-12-10] MEDS: Thiamine 100 MG/ML 2 ml VIAL 250 MG in NS 0.9% 100 ml BAG 100 ML IV SCH (10:59)
[2021-12-10] MEDS: Nicotine GUM 4MG FRUIT FLAVOR PO PRN ×2 (19:15→21:45)
[2021-12-11] MEDS: Nicotine PATCH 21 MG/24 HR PATCH TRANSDERM SCH (08:06)
[2021-12-11] MEDS: Thiamine 100 MG/ML 2 ml VIAL 250 MG in NS 0.9% 100 ml BAG 100 ML IV SCH (08:40)
[2021-12-11] MEDS: Nicotine GUM 4MG FRUIT FLAVOR PO PRN (18:45)
[2021-12-12] MEDS: Nicotine PATCH 21 MG/24 HR PATCH TRANSDERM SCH (07:59)
[2021-12-12] MEDS: Thiamine 100 MG/ML 2 ml VIAL 250 MG in NS 0.9% 100 ml BAG 100 ML IV SCH (10:03)
[2021-12-12 17:11] LABS: Albumin/Globulin Ratio 0.71; Total Protein(PEP) 4.8 g/dL (6.3 - 7.9)
[2021-12-13] MEDS: Nicotine PATCH 21 MG/24 HR PATCH TRANSDERM SCH (08:24)
[2021-12-13] MEDS: Thiamine 100 MG/ML 2 ml VIAL 250 MG in NS 0.9% 100 ml BAG 100 ML IV SCH (10:13)
[2021-12-13] MEDS: Nicotine GUM 4MG FRUIT FLAVOR PO PRN ×2 (14:54→19:26)
[2021-12-14] MEDS: Nicotine PATCH 21 MG/24 HR PATCH TRANSDERM SCH (07:32)
[2021-12-14] MEDS: Nicotine GUM 4MG FRUIT FLAVOR PO PRN ×2 (10:38→20:13)
[2021-12-15] MEDS: Nicotine PATCH 21 MG/24 HR PATCH TRANSDERM SCH (08:25)
[2021-12-15] MEDS ORDERED: PPD test dose 5 TU/0.1 ML TEST (*USE PPD ORDER SET*) INTRADERM ONE (13:00)
[2021-12-15] MEDS ORDERED: COVID VACC, MONOVAL PFIZER-TRIS 30 MCG/0.3 ML SYR IM ONE (16:00)
[2021-12-16] MEDS: Nicotine PATCH 21 MG/24 HR PATCH TRANSDERM SCH (08:33)
[2021-12-16] MEDS: Nicotine GUM 4MG FRUIT FLAVOR PO PRN (08:34)
[2021-12-17] MEDS: Nicotine PATCH 21 MG/24 HR PATCH TRANSDERM SCH (08:43)
[2021-12-17] MEDS ORDERED: PPD Reading NOTE 1 EA MISC ONE (13:00)
[2021-12-18] MEDS: Nicotine PATCH 21 MG/24 HR PATCH TRANSDERM SCH (07:57)
[2021-12-19] MEDS: Nicotine PATCH 21 MG/24 HR PATCH TRANSDERM SCH (09:44)
[2021-12-19] MEDS: PAIN RELIEVING RUB (MENTHOL/SALICYLATE) 1 APPLIC TUBE TOPICAL PRN (22:22)
[2021-12-20] MEDS: PAIN RELIEVING RUB (MENTHOL/SALICYLATE) 1 APPLIC TUBE TOPICAL PRN (10:13)
[2021-12-20] MEDS: Nicotine PATCH 21 MG/24 HR PATCH TRANSDERM SCH (10:14)
[2021-12-21] MEDS: Nicotine PATCH 21 MG/24 HR PATCH TRANSDERM SCH (09:09)
[2021-12-21] MEDS: Nicotine GUM 4MG FRUIT FLAVOR PO PRN (15:15)
[2021-12-22] MEDS: Nicotine PATCH 21 MG/24 HR PATCH TRANSDERM SCH (09:24)
[2021-12-22 09:46] LABS: ABS Basophils 0.1 10^3/ul (0-0.2); ABS Eosinophils 0.1 10^3/ul (0-0.6); ABS Lymphocytes 1.5 10^3/ul (1.0-4.8); ABS Monocytes 0.6 10^3/ul (0-0.8); ABS Neutrophils 7.7 10^3/ul (1.5-7.7); Eosinophil % 1.2 %; Hematocrit 32 % (42-52); Hemoglobin 10.8 g/dL (14.0-18.0); Lymphocyte % 14.9 %; Mean Corpuscular HGB Conc 34 g/dL (31-36); Mean Corpuscular Hemoglobin 34 pg (27-31); Mean Corpuscular Volume 102 fL (80-94); Mean Platelet Volume 6.9 fL (7.4-10.4); Platelet Count 750 10^3/uL (150-450); Red Blood Count 3.14 10^6 /uL (4.18-5.48); Red Cell Distribution Width 18 % (10-15); White Blood Count 10.1 10^3/uL (3.5-10.8)
[2021-12-22 10:24] LABS: Calcium 9.8 mg/dL (8.6-10.3); Magnesium 1.6 mg/dL (1.9-2.7); Potassium 4.3 mmol/L (3.5-5.0); eGFR CKD-EPI 113.5 (>60)
[2021-12-22 10:36] LABS: TSH Ultra Thyroid Stim Horm 1.21 mcIU/mL (0.34-5.60)
[2021-12-22] MEDS: Nicotine GUM 4MG FRUIT FLAVOR PO PRN (10:49)
[2021-12-23 05:18] LABS: Anti-Glial/Neuronal Nuc Ab-1 A Negative titer (<1:240); Anti-Neuronal Nuclear Ab Type1 Negative titer (<1:240); Anti-Neuronal Nuclear Ab Type2 Negative titer (<1:240); Anti-Neuronal Nuclear Ab Type3 Negative titer (<1:240); CRMP-5 IgG Antibody Negative titer (<1:240); Calcium Channel Binding Ab P/Q 0.01 nmol/L (<=0.02); Purkinje Cell Cytoplasm Typ Tr Negative titer (<1:240); Purkinje Cell Cytoplasm Type 1 Negative titer (<1:240); Purkinje Cell Cytoplasm Type 2 Negative titer (<1:240); Voltage-Gated Potassium Chann 0.31 nmol/L (<=0.02)
[2021-12-23] MEDS: Nicotine PATCH 21 MG/24 HR PATCH TRANSDERM SCH (08:26)
[2021-12-24] MEDS: Nicotine PATCH 21 MG/24 HR PATCH TRANSDERM SCH (10:07)
[2021-12-24] MEDS: Nicotine GUM 4MG FRUIT FLAVOR PO PRN (20:52)
[2021-12-25] MEDS: Nicotine PATCH 21 MG/24 HR PATCH TRANSDERM SCH (09:25)
[2021-12-25] MEDS: Nicotine GUM 4MG FRUIT FLAVOR PO PRN (19:54)
[2021-12-26] MEDS: Nicotine PATCH 21 MG/24 HR PATCH TRANSDERM SCH (08:44)
[2021-12-26] MEDS: Nicotine GUM 4MG FRUIT FLAVOR PO PRN (19:40)
[2021-12-27] MEDS: Nicotine PATCH 21 MG/24 HR PATCH TRANSDERM SCH (09:54)
[2021-12-27] MEDS: Nicotine GUM 4MG FRUIT FLAVOR PO PRN ×3 (09:56→22:29)
[2021-12-28] MEDS: Nicotine GUM 4MG FRUIT FLAVOR PO PRN ×2 (07:59→21:25)
[2021-12-28] MEDS: Nicotine PATCH 21 MG/24 HR PATCH TRANSDERM SCH (08:00)
[2021-12-29] MEDS: Nicotine GUM 4MG FRUIT FLAVOR PO PRN ×4 (08:44→20:25)
[2021-12-29] MEDS: Nicotine PATCH 21 MG/24 HR PATCH TRANSDERM SCH (08:45)
[2021-12-30] MEDS ORDERED: Ketorolac 10 mg TAB (NF) PO ONE (04:48)
[2021-12-30 05:25] LABS: ABS Basophils 0.1 10^3/ul (0-0.2); ABS Eosinophils 0.2 10^3/ul (0-0.6); ABS Lymphocytes 2.2 10^3/ul (1.0-4.8); ABS Monocytes 0.8 10^3/ul (0-0.8); ABS Neutrophils 7.3 10^3/ul (1.5-7.7); Eosinophil % 2.1 %; Hematocrit 31 % (42-52); Hemoglobin 10.5 g/dL (14.0-18.0); Lymphocyte % 20.6 %; Mean Corpuscular HGB Conc 34 g/dL (31-36); Mean Corpuscular Hemoglobin 33 pg (27-31); Mean Corpuscular Volume 98 fL (80-94); Mean Platelet Volume 7.6 fL (7.4-10.4); Platelet Count 610 10^3/uL (150-450); Red Blood Count 3.19 10^6 /uL (4.18-5.48); Red Cell Distribution Width 19 % (10-15); White Blood Count 10.6 10^3/uL (3.5-10.8)
[2021-12-30 05:39] LABS: Calcium 9.8 mg/dL (8.6-10.3); Potassium 4.2 mmol/L (3.5-5.0); eGFR CKD-EPI 109.6 (>60)
[2021-12-30 07:15] VITALS: BP 138/98
[2021-12-30 08:43] LABS: Magnesium 1.7 mg/dL (1.9-2.7)
[2021-12-30] MEDS: Nicotine PATCH 21 MG/24 HR PATCH TRANSDERM SCH (08:54)
== END 2021-12-29 08:00 | disposition short-term general hospital (02) | DRG 421 ==
LOC: ED 10:12 → EDHOLD 10:12 → SUATTDRO 16:20 → MED 20:42 → SUATTDRO 12-07 13:00 → MED 12-09 00:41
PROVIDERS: ADMIT Internal Medicine; ATTEND Hospitalist

== ENCOUNTER 2022-03-24 14:16 | Inpatient (IN) ==
[2022-03-24 21:06] LABS: ABS Basophils 0.2 10^3/ul (0-0.2); ABS Eosinophils 0.1 10^3/ul (0-0.6); ABS Lymphocytes 2.2 10^3/ul (1.0-4.8); ABS Monocytes 0.6 10^3/ul (0-0.8); ABS Neutrophils 8.3 10^3/ul (1.5-7.7); Eosinophil % 1.2 %; Hematocrit 38 % (42-52); Hemoglobin 12.2 g/dL (14.0-18.0); Mean Corpuscular HGB Conc 32 g/dL (31-36); Mean Corpuscular Hemoglobin 28 pg (27-31); Mean Corpuscular Volume 87 fL (80-94); Mean Platelet Volume 7.7 fL (7.4-10.4); Nucleated Red Blood Cells % 0.1; Platelet Count 557 10^3/uL (150-450); Red Blood Count 4.37 10^6 /uL (4.18-5.48); Red Cell Distribution Width 18 % (10-15); White Blood Count 11.4 10^3/uL (3.5-10.8)
[2022-03-24 21:31] LABS: High Sens Troponin Baseline < 3 pg/mL (<20)
[2022-03-24 21:37] LABS: ALT 8 U/L (7-52); AST 12 U/L (13-39); Albumin 3.7 g/dL (3.2-5.2); Albumin/Globulin Ratio 1.2 (1-3); Alkaline Phosphatase 36 U/L (35-149); Anion Gap 6 mmol/L (2-11); Blood Urea Nitrogen 14 mg/dL (6-24); CO2 Carbon Dioxide 28 mmol/L (22-32); Calcium 9.3 mg/dL (8.6-10.3); Chloride 102 mmol/L (101-111); Glucose 100 mg/dL (70-100); Magnesium 1.7 mg/dL (1.9-2.7); Sodium 136 mmol/L (135-145); Total Protein 6.7 g/dL (6.4-8.9); eGFR CKD-EPI 107.6 (>60)
[2022-03-24 21:52] LABS: TSH Ultra Thyroid Stim Horm 0.76 mcIU/mL (0.34-5.60)
[2022-03-24 22:58] LABS: High Sensitivity Troponin 1 Hr < 3 pg/mL (<20)
[2022-03-25 01:09] LABS: Urine Appearance Clear; Urine Bilirubin Negative (Negative); Urine Blood Negative (Negative); Urine Color Straw; Urine Glucose Negative (Negative); Urine Ketones Negative (Negative); Urine Nitrite Negative (Negative); Urine Protein Negative (Negative); Urine Specific Gravity 1.004 (1.002-1.030); Urine Urobilinogen Negative (Negative)
[2022-03-25] MEDS ORDERED: Magnesium Hydroxide LIQ 30 ML UDC PO PRN (14:13)
[2022-03-26] MEDS: Nicotine PATCH 21 MG/24 HR PATCH TRANSDERM SCH (09:51)
[2022-03-26] MEDS ORDERED: Nicotine GUM 4MG FRUIT FLAVOR PO PRN (15:30)
[2022-03-27 06:56] LABS: Calcium 9.3 mg/dL (8.6-10.3); Magnesium 1.8 mg/dL (1.9-2.7); Potassium 4.3 mmol/L (3.5-5.0); eGFR CKD-EPI 109.6 (>60)
[2022-03-27 07:13] LABS: ABS Eosinophils 0.2 10^3/ul (0-0.6); ABS Monocytes 0.6 10^3/ul (0-0.8); ABS Neutrophils 3.8 10^3/ul (1.5-7.7); Eosinophil % 2.2 %; Hematocrit 36 % (42-52); Hemoglobin 11.6 g/dL (14.0-18.0); Lymphocyte % 39.9 %; Mean Corpuscular HGB Conc 32 g/dL (31-36); Mean Corpuscular Hemoglobin 28 pg (27-31); Mean Corpuscular Volume 86 fL (80-94); Mean Platelet Volume 8.3 fL (7.4-10.4); Platelet Count 528 10^3/uL (150-450); Red Blood Count 4.19 10^6 /uL (4.18-5.48); Red Cell Distribution Width 18 % (10-15); White Blood Count 7.6 10^3/uL (3.5-10.8)
[2022-03-27] MEDS: Nicotine PATCH 21 MG/24 HR PATCH TRANSDERM SCH (08:56)
[2022-03-27 11:28] VITALS: BP 102/70
== END 2022-03-27 14:20 | disposition home or self-care (01) | DRG 57 ==
LOC: ED 14:16 → SUATTDRO 03-25 14:13 → EDHOLD 03-25 14:13 → MED 03-25 22:41
PROVIDERS: ADMIT Internal Medicine; ATTEND Internal Medicine